=== PATIENT | female | born 1990 | race Caucasian/White ===

== ENCOUNTER 2017-07-18 11:52 | Emergency (ER) | payer BC ==
[2017-07-18] MEDS ORDERED: Lidocaine 2% Viscous Solution 15 ML Cup PO ONE (12:39)
[2017-07-18] MEDS ORDERED: Benzocaine 20% Topical Spray UD MUCMEM ONE (12:39)
--- NOTE | 2017-07-18 12:57 | EDM.PDOC ---
ED HPI GENERAL MEDICAL PROBLEM - General Chief Complaint: ENT Problem Stated Complaint: TOOTH PAIN Time Seen by Provider: 07/18/17 12:36 Source of Information: Reports: Patient History Limitations: Reports: No Limitations - History of Present Illness INITIAL COMMENTS - FREE TEXT/NARRATIVE: History of present illness: []Patient has chronic dental pain and is new to the area and does not have a dentist. She states she feels like she has an infection starting in the back of her left lower tooth and she is a upper front tooth that gives her chronic pain. She takes Excedrin Migraine but states that caffeine irritates her anxiety. She denies any fevers or facial swelling. Review of systems: As per history of present illness and below otherwise all systems reviewed and negative. Past medical history: As per history of present illness and as reviewed below otherwise noncontributory. Surgical history: As per history of present illness and as reviewed below otherwise noncontributory. Social history: No reported history of drug or alcohol abuse. Family history: As per history of present illness and as reviewed below otherwise noncontributory. Physical exam: General: Well developed, well nourished in NAD HEENT: Atraumatic, normocephalic, pupils reactive, negative for conjunctival pallor or scleral icterus, mucous membranes moist, throat clear, neck supple, nontender, trachea midline. Lungs: Clear to auscultation, breath sounds equal bilaterally, chest nontender. Heart: S1S2, regular, negative for clicks, rubs, or JVD. Abdomen: Soft, nondistended, nontender. Negative for masses or hepatosplenomegaly. Negative for costovertebral tenderness. Pelvis: Stable nontender. Genitourinary: Deferred. Rectal: Deferred. Extremities: Atraumatic, negative for cords or calf pain. Neurovascular unremarkable. Neuro: Awake, alert, oriented. Cranial nerves II through XII unremarkable. Cerebellum unremarkable. Motor and sensory unremarkable throughout. Exam nonfocal. Diagnostics: [] Therapeutics: [] Impression: []Dental abscess Plan: []Dental pulse for pain continue Tylenol Motrin follow-up with a dentist DEREK. Definitive disposition and diagnosis as appropriate pending reevaluation and review of above. left teeth Pain Score (Numeric/FACES): 8 - Related Data Allergies Allergy/AdvReac Type Severity Reaction Status Date / Time No Known Allergies Allergy Verified 07/18/17 12:28 Home Meds: Home Meds Escitalopram [Lexapro] 40 mg PO DAILY 07/18/17 [History] Penicillin V Potassium 500 mg PO Q6HR #40 tab 07/18/17 [Rx] buPROPion [Wellbutrin] 300 mg PO DAILY 07/18/17 [History] clonazePAM [Clonazepam] 1 mg PO TID 07/18/17 [History] Past Medical History HEENT History: Reports: None Cardiovascular History: Reports: None Respiratory History: Reports: None Gastrointestinal History: Reports: None Genitourinary History: Reports: None 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) Other OB/BYN History: Musculoskeletal History: Reports: None Neurological History: Reports: None Psychiatric History: Reports: Anxiety, Depression, Panic Attack, PTSD Endocrine/Metabolic History: Reports: Hypoparathyroidism Hematologic History: Reports: None Immunologic History: Reports: None Oncologic (Cancer) History: Reports: None Dermatologic History: Reports: None - Infectious Disease History Infectious Disease History: Reports: Chicken Pox - Past Surgical History Head Surgeries/Procedures: Reports: None HEENT Surgical History: Reports: None Cardiovascular Surgical History: Reports: None Respiratory Surgical History: Reports: None GI Surgical History: Reports: None Female Surgical History: Reports: None Neurological Surgical History: Reports: None Musculoskeletal Surgical History: Reports: None Oncologic Surgical History: Reports: None Dermatological Surgical History: Reports: None Social & Family History - Family History Family Medical History: Noncontributory - Tobacco Use Smoking Status *Q: Former Smoker Used Tobacco, but Quit: Yes Month Tobacco Last Used: 1 - Caffeine Use Caffeine Use: Reports: Soda - Recreational Drug Use Recreational Drug Use: No ED ROS ENT - Review of Systems Review Of Systems: See Below (See history of present illness) ED EXAM, ENT - Physical Exam Exam: See Below (See history of present illness) Course - Vital Signs Last Recorded V/S: Last Vital Signs Temp 97.3 F 07/18/17 12:30 Pulse 98 07/18/17 12:30 Resp 18 07/18/17 12:30 BP 148/92 H 07/18/17 12:30 Pulse Ox 97 07/18/17 12:30 - Orders/Labs/Meds Meds: Medications Discontinued Medications Generic Name Dose Route Start Last Admin Trade Name Freq PRN Reason Stop Dose Admin Benzocaine 2 each 07/18/17 12:39 07/18/17 12:49 Hurricaine One 20% MUCMEM 07/18/17 12:40 2 each ONETIME ONE Administration Lidocaine HCl 15 ml 07/18/17 12:39 07/18/17 12:49 Xylocaine 2% Viscous PO 07/18/17 12:40 15 ml ONETIME ONE Administration Departure - Departure Time of Disposition: 12:55 Disposition: Home, Self-Care 01 Condition: Good Clinical Impression: Chronic dental pain - Discharge Information Prescriptions: Penicillin V Potassium 500 mg PO Q6HR #40 tab Instructions: Dental Abscess, [id number] Referrals: PCP,None [Primary Care Provider] - Forms: ED Department Discharge Additional Instructions: The following information is given to patients seen in the emergency department who are being discharged to home. This information is to outline your options for follow-up care. We provide all patients seen in our emergency department with a follow-up referral. The need for follow-up, as well as the timing and circumstances, are variable depending upon the specifics of your emergency department visit. If you don't have a primary care physician on staff, we will provide you with a referral. We always advise you to contact your personal physician following an emergency department visit to inform them of the circumstance of the visit and for follow-up with them and/or the need for any referrals to a consulting specialist. The emergency department will also refer you to a specialist when appropriate. This referral assures that you have the opportunity for follow-up care with a specialist. All of these measure are taken in an effort to provide you with optimal care, which includes your follow-up. Under all circumstances we always encourage you to contact your private physician who remains a resource for coordinating your care. When calling for follow-up care, please make the office aware that this follow-up is from your recent emergency room visit. If for any reason you are refused follow-up, please contact the [facility] Emergency Department at and asked to speak to the emergency department charge nurse. Follow up with her regular dentist Motrin and Tylenol for pain penicillin as directed. [facility] [address] [place] [phone]
== END 2017-07-18 13:07 | disposition home or self-care (01) ==
LOC: MW.ED 11:52
DX: K04.7 Periapical abscess without sinus (principal); Z79.899 Other long term (current) drug therapy; Z87.891 Personal history of nicotine dependence
CPT/HCPCS: 99282; A9270

== ENCOUNTER 2017-08-16 13:25 | Emergency (ER) | payer BC ==
--- NOTE | 2017-08-16 13:49 | EDM.PDOCBH ---
ED HPI GENERAL MEDICAL PROBLEM - General Chief Complaint: Behavioral/Psych Stated Complaint: panic attack Time Seen by Provider: 08/16/17 13:49 Source of Information: Reports: Patient History Limitations: Reports: No Limitations - History of Present Illness INITIAL COMMENTS - FREE TEXT/NARRATIVE: HISTORY AND PHYSICAL: History of present illness: Patient is a 27-year-old female who presents to the emergency room with complaints of a "panic attack". She states she has a long-standing history of anxiety and was recently diagnosed with a "panic disorder". She does take Klonopin 1 mg 3 times daily, which she reports normally keeps her well- controlled. She is recently moving here from [place], [place] and is set up to see a provider at [facility] on August 25, 2017. Today she states that something triggered her to have a panic attack and was unable to get it under control. She has labored breathing, palpitations and heightened anxiety. Review of systems: As per history of present illness and below otherwise all systems reviewed and negative. Past medical history: As per history of present illness and as reviewed below otherwise noncontributory. Surgical history: As per history of present illness and as reviewed below otherwise noncontributory. Social history: No reported history of drug or alcohol abuse. Family history: As per history of present illness and as reviewed below otherwise noncontributory. Physical exam: Gen.: Well-developed and well-nourished 27-year-old female. Alert and oriented. Nontoxic appearing and in no acute distress. HEENT: Atraumatic, normocephalic, pupils reactive, negative for conjunctival pallor or scleral icterus, mucous membranes moist, throat clear, neck supple, nontender, trachea midline. Lungs: Clear to auscultation, breath sounds equal bilaterally, chest nontender. Heart: S1S2, regular rate and rhythm Abdomen: Soft, nondistended, nontender. Negative for masses or hepatosplenomegaly. Negative for costovertebral tenderness. Pelvis: Stable nontender. Genitourinary: Deferred. Rectal: Deferred. Extremities: Atraumatic, negative for cords or calf pain. Neurovascular unremarkable. Neuro: Awake, alert, oriented. Cranial nerves II through XII unremarkable. Cerebellum unremarkable. Motor and sensory unremarkable throughout. Exam nonfocal. Diagnostics: [] Therapeutics: Ativan IM Impression: #1 Panic attack #2 History of anxiety Plan: 1. Please keep your appointment for August 25, 2017 as he may need her medications adjusted if he continued to have breakthrough anxiety attacks. 2. Continue to take your prescribed medications as recommended. 3. No driving today after your injection of Ativan. Please go home and rest 4. Return to the ED as needed and as discussed. Definitive disposition and diagnosis as appropriate pending reevaluation and review of above. Onset: Today Duration: Hour(s):, Chronic - Related Data Allergies Allergy/AdvReac Type Severity Reaction Status Date / Time No Known Allergies Allergy Verified 08/16/17 13:32 Home Meds: Home Meds Escitalopram [Lexapro] 40 mg PO DAILY 07/18/17 [History] buPROPion [Wellbutrin] 300 mg PO DAILY 07/18/17 [History] clonazePAM [Clonazepam] 1 mg PO TID 07/18/17 [History] Levothyroxine 75 mcg PO ACBREAKFAST 08/16/17 [History] Past Medical History HEENT History: Reports: None Cardiovascular History: Reports: None Respiratory History: Reports: None Gastrointestinal History: Reports: None Genitourinary History: Reports: None 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) Other OB/BYN History: Musculoskeletal History: Reports: None Neurological History: Reports: None Psychiatric History: Reports: Anxiety, Depression, Panic Attack, PTSD Endocrine/Metabolic History: Reports: Hypoparathyroidism Hematologic History: Reports: None Immunologic History: Reports: None Oncologic (Cancer) History: Reports: None Dermatologic History: Reports: None - Infectious Disease History Infectious Disease History: Reports: Chicken Pox - Past Surgical History Head Surgeries/Procedures: Reports: None HEENT Surgical History: Reports: None Cardiovascular Surgical History: Reports: None Respiratory Surgical History: Reports: None GI Surgical History: Reports: None Female Surgical History: Reports: None Neurological Surgical History: Reports: None Musculoskeletal Surgical History: Reports: None Oncologic Surgical History: Reports: None Dermatological Surgical History: Reports: None Social & Family History - Family History Family Medical History: Noncontributory - Tobacco Use Smoking Status *Q: Never Smoker Used Tobacco, but Quit: Yes Month Tobacco Last Used: 1 - Caffeine Use Caffeine Use: Reports: None - Recreational Drug Use Recreational Drug Use: No ED ROS GENERAL - Review of Systems Review Of Systems: ROS reveals no pertinent complaints other than HPI. ED EXAM, BEHAVIORAL HEALTH - Physical Exam Exam: See Below (See dictation) COURSE, BEHAVIORAL HEALTH COMP - Course Vital Signs: Last Vital Signs Temp 97.8 F 08/16/17 13:34 Pulse 91 08/16/17 13:34 Resp 18 08/16/17 13:34 BP 140/100 H 08/16/17 13:34 Pulse Ox 98 08/16/17 13:34 Departure - Departure Time of Disposition: 14:46 Disposition: Home, Self-Care 01 Clinical Impression: Panic attack, History of anxiety - Discharge Information Referrals: PCP,Unknown [Primary Care Provider] - Forms: ED Department Discharge Additional Instructions: My general discharge The following information is given to patients seen in the emergency department who are being discharged to home. This information is to outline your options for follow-up care. We provide all patients seen in our emergency department with a follow-up referral. The need for follow-up, as well as the timing and circumstances, are variable depending upon the specifics of your emergency department visit. If you don't have a primary care physician on staff, we will provide you with a referral. We always advise you to contact your personal physician following an emergency department visit to inform them of the circumstance of the visit and for follow-up with them and/or the need for any referrals to a consulting specialist. The emergency department will also refer you to a specialist when appropriate. This referral assures that you have the opportunity for follow-up care with a specialist. All of these measure are taken in an effort to provide you with optimal care, which includes your follow-up. Under all circumstances we always encourage you to contact your private physician who remains a resource for coordinating your care. When calling for follow-up care, please make the office aware that this follow-up is from your recent emergency room visit. If for any reason you are refused follow-up, please contact the [facility] Emergency Department at and asked to speak to the emergency department charge nurse. [facility] [address] [place] [phone] 1. Please keep your appointment for August 25, 2017 - as you may need her medications adjusted if he continued to have breakthrough anxiety attacks. 2. Continue to take your prescribed medications as recommended. 3. No driving today after your injection of Ativan. Please go home and rest 4. Return to the ED as needed and as discussed.
[2017-08-16] MEDS ORDERED: LORazepam 2 MG/ML MDV IM ONE (14:42)
[2017-08-16] MEDS ORDERED: Acetaminophen 500 MG Tab PO STA (15:09)
== END 2017-08-16 15:25 | disposition home or self-care (01) ==
LOC: MW.ED 13:25
DX: F41.0 Panic disorder [episodic paroxysmal anxiety] (principal); F32.9 Major depressive disorder, single episode, unspecified; Z79.899 Other long term (current) drug therapy
CPT/HCPCS: 96372; 99283; A9270; J2060

== ENCOUNTER 2017-08-27 17:21 | Emergency (ER) | payer BC ==
[2017-08-27] MEDS ORDERED: LORazepam 2 MG/ML SDV IVPUSH ONE ×2 (17:23→18:32)
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
[2017-08-27] MEDS ORDERED: Sodium Chloride 0.9% 500 ML IV SCH (17:30)
[2017-08-27 18:49] LABS: CHLORIDE,CL 108 mmol/L (98-110); SODIUM,NA 140 mmol/L (136-146)
[2017-08-27] MEDS ORDERED: Ketorolac 60 MG/2 ML SDV IM ONE (19:12)
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
== END 2017-08-27 19:31 | disposition home or self-care (01) ==
LOC: MW.ED 17:21
DX: F41.9 Anxiety disorder, unspecified (principal); R51 Headache; F32.9 Major depressive disorder, single episode, unspecified; Z87.891 Personal history of nicotine dependence; Z79.899 Other long term (current) drug therapy; X02.0XXA Exposure to flames in controlled fire in building or structure, initial encounter
CPT/HCPCS: 36415; 71046; 80053; 82375; 85025; 93005; 96361; 96372; 96374; 96376; 99285; J1885; J2060; J7040; 99284

== ENCOUNTER 2017-11-01 17:01 | Emergency (ER) | payer BC ==
[2017-11-01] MEDS ORDERED: LORazepam 2 MG/ML SDV IVPUSH ONE (17:30)
[2017-11-01] MEDS ORDERED: Prochlorperazine 10 MG/2 ML SDV IM ONE (17:31)
[2017-11-01] MEDS ORDERED: Ketorolac 30 MG/ML SDV IVPUSH ONE (17:33)
[2017-11-01] MEDS ORDERED: diphenhydrAMINE 50 MG/ML SDV IVPUSH ONE (17:33)
[2017-11-01] MEDS: Sodium Chloride 0.9% 500 ML IV SCH ×2 (17:39→18:18)
[2017-11-01] MEDS ORDERED: Morphine 4 MG/ML Syringe IVPUSH ONE (18:50)
--- NOTE | 2017-11-01 18:57 | EDM.PDOC ---
ED HPI GENERAL MEDICAL PROBLEM - General Chief Complaint: Headache Stated Complaint: MIGRAINE/BLURRY VISION Time Seen by Provider: 11/01/17 18:51 Source of Information: Reports: Patient History Limitations: Reports: No Limitations - History of Present Illness INITIAL COMMENTS - FREE TEXT/NARRATIVE: HISTORY AND PHYSICAL: []27-year-old female presenting with migraine headache for the last 2 hours History of Present Illness: []Last migraine headache was 6 months ago. This headache has presented in increased intensity There has history of migraine headaches Patient has never been worked up for migraines in the past Review of Systems: As per history of present illness and below otherwise all systems reviewed and negative. Past medical history: As per history of present illness and as reviewed below otherwise noncontributory. Surgical history: As per history of present illness and as reviewed below otherwise noncontributory. Social history: No reported history of drug or alcohol abuse. Family history: As per history of present illness and as reviewed below otherwise noncontributory. Physical exam: Alert female who is hiding underneath her hoody as she is photophobic, she is nauseated. No emesis. Obese female answering questions appropriately in full sentences no shortness of breath is noted. HEENT: Atraumatic, normocehpalic, pupils reactive, negative for conjunctival pallor or scleral icterus, mucous membranes moist, throat clear, neck supple, nontender, trachea midline. Nasal pharyngeal exudate was noted to the posterior pharynx.Slight tenderness noted to the maxillary sinuses. Lungs: Clear to auscultation, breath sounds equal bilaterally, chest non tender. Heart: S1S2, regular, negative for clicks, rubs, or JVD. Abdomen: Soft, nondistended, nontender. Negative for masses or hepatossplenmegaly. Negative for costovertebral tenderness. Pelvis: Stable nontender. Genitourinary: Deferred. Rectal: Deferred Extremities: Atraumatic, negative for cords or calf pain. Neurovascular unremarkable. Neuro: Awake, alert, oriented. Cranial nerves II through XII unremarkable. Cerebellum unremarkable. Motor and sensory unremarkable throughout. Exam nonfocal. Diagnostics: []head CT Therapeutics: []IV normal saline 1 L Benadryl 25 IV Compazine 10 mg IM Toradol 30 IV Morphine 2mg IV Impression: []#1 migraine #2 sinusitis Plan: []Discharged home Follow-up with your primary care provider Chandnim DS 1 twice a day 14 days Sleep assessment make her headache better Return to emergency room should symptoms worsen in intensity Definitive disposition and diagnosis as appropriate pending reevaluation and review of above. Onset: Today, Sudden Duration: Hour(s): Location: Reports: Head Quality: Reports: Stabbing, Throbbing Severity: Moderate Improves with: Reports: None Worsens with: Reports: None Associated Symptoms: Reports: Headaches headache Pain Score (Numeric/FACES): 7 - Related Data Allergies Allergy/AdvReac Type Severity Reaction Status Date / Time No Known Allergies Allergy Verified 08/16/17 13:32 Home Meds: Home Meds Escitalopram [Lexapro] 40 mg PO DAILY 07/18/17 [History] buPROPion [Wellbutrin] 300 mg PO DAILY 07/18/17 [History] clonazePAM [Clonazepam] 1 mg PO TID 07/18/17 [History] Levothyroxine 75 mcg PO ACBREAKFAST 08/16/17 [History] Sulfamethoxazole/Trimethoprim [Bactrim Ds Tablet] 1 each PO BID #28 tablet 11/01 [Rx] Past Medical History HEENT History: Reports: None Cardiovascular History: Reports: None Respiratory History: Reports: None Gastrointestinal History: Reports: None Genitourinary History: Reports: None 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) Other OB/BYN History: Musculoskeletal History: Reports: None Neurological History: Reports: None Psychiatric History: Reports: Anxiety, Depression, Panic Attack, PTSD Endocrine/Metabolic History: Reports: Hypoparathyroidism, Other (See Below) Other Endocrine/Metabolic History: "pre-diabetic" Hematologic History: Reports: None Immunologic History: Reports: None Oncologic (Cancer) History: Reports: None Dermatologic History: Reports: None - Infectious Disease History Infectious Disease History: Reports: None - Past Surgical History Head Surgeries/Procedures: Reports: None HEENT Surgical History: Reports: None Cardiovascular Surgical History: Reports: None Respiratory Surgical History: Reports: None GI Surgical History: Reports: None Female Surgical History: Reports: None Neurological Surgical History: Reports: None Musculoskeletal Surgical History: Reports: None Oncologic Surgical History: Reports: None Dermatological Surgical History: Reports: None Social & Family History - Family History Family Medical History: Noncontributory - Tobacco Use Smoking Status *Q: Current Every Day Smoker Years of Tobacco use: 25 Packs/Tins Daily: 0.5 Used Tobacco, but Quit: Yes Month/Year Tobacco Last Used: 1 Second Hand Smoke Exposure: No - Caffeine Use Caffeine Use: Reports: Coffee - Recreational Drug Use Recreational Drug Use: No Drug Use in Last 12 Months: No Recreational Drug Use Frequency: Not Used In Over 6 Months ED ROS GENERAL - Review of Systems Review Of Systems: ROS reveals no pertinent complaints other than HPI. - Physical Exam Exam: See Below (see dictation) Course - Vital Signs Last Recorded V/S: Last Vital Signs Temp 36.6 C 11/01/17 17:19 Pulse 81 11/01/17 17:19 Resp 18 11/01/17 17:19 BP 118/70 11/01/17 17:19 Pulse Ox 97 11/01/17 17:19 - Orders/Labs/Meds Orders: Active Orders 24 hr Category Date Time Status Head wo Cont [CT] Stat Exams 11/01/17 17:30 Taken Morphine Med 11/01/17 18:50 Once 2 mg IVPUSH ONETIME ONE Labs: Laboratory Tests 11/01/17 Range/Units 17:29 POC Glucose 131 H (60-110) mg/dL Meds: Medications Discontinued Medications Generic Name Dose Route Start Last Admin Trade Name Scottq PRN Reason Stop Dose Admin Diphenhydramine HCl 25 mg 11/01/17 17:33 11/01/17 17:44 Benadryl IVPUSH 11/01/17 17:34 25 mg ONETIME ONE Administration Sodium Chloride 500 mls @ 999 mls/hr 11/01/17 17:32 11/01/17 18:18 Normal Saline IV 999 mls/hr .BOLUS EVETTE Administration Ketorolac Tromethamine 30 mg 11/01/17 17:33 11/01/17 17:44 Toradol IVPUSH 11/01/17 17:34 30 mg ONETIME ONE Administration Lorazepam 1 mg 11/01/17 17:30 11/01/17 17:39 Ativan IVPUSH 11/01/17 17:31 1 mg ONETIME ONE Administration Prochlorperazine Edisylate 10 mg 11/01/17 17:31 11/01/17 17:40 Compazine IM 11/01/17 17:32 10 mg ONETIME ONE Administration Departure - Departure Time of Disposition: 18:58 Disposition: Home, Self-Care 01 Condition: Good Clinical Impression: Migraine - Discharge Information Prescriptions: Sulfamethoxazole/Trimethoprim [Bactrim Ds Tablet] 1 each PO BID #28 tablet Referrals: Court Espino MD [Primary Care Provider] - Additional Instructions: The following information is given to patients seen in the emergency department who are being discharged to home. This information is to outline your options for follow-up care. We provide all patients seen in our emergency department with a follow-up referral. The need for follow-up, as well as the timing and circumstances, are variable depending upon the specifics of your emergency department visit. If you don't have a primary care physician on staff, we will provide you with a referral. We always advise you to contact your personal physician following an emergency department visit to inform them of the circumstance of the visit and for follow-up with them and/or the need for any referrals to a consulting specialist. The emergency department will also refer you to a specialist when appropriate. This referral assures that you have the opportunity for followup care with a specialist. All of these measure are taken in an effort to provide you with optimal care, which includes your followup. Under all circumstances we always encourage you to contact your private physician who remains a resource for coordinating your care. When calling for followup care, please make the office aware that this follow-up is from your recent emergency room visit. If for any reason you are refused follow-up, please contact the [facility] emergency department at and asked to speak to the emergency department charge nurse. You have a migraine headache and sinus infection Prescription for Bactrim DS has been sent to your pharmacy Follow up with your primary care provider The worsening of symptoms return to the emergency room as directed and discussed Consider a referral to neurology - My Orders Last 24 Hours: My Active Orders 11/01/17 17:30 Head wo Cont [CT] Stat 11/01/17 18:50 Morphine 2 mg IVPUSH ONETIME ONE - Assessment/Plan Last 24 Hours: My Active Orders 11/01/17 17:30 Head wo Cont [CT] Stat 11/01/17 18:50 Morphine 2 mg IVPUSH ONETIME ONE
--- NOTE | 2017-11-02 10:28 | CT ---
EXAM DATE: 11/01/17 PATIENT'S AGE: 27 Patient: SHANTA AVERY Facility: [place], [place] Site . Site : 1990 Study: CT Head [id number] 6:13:23 PM Ordering Physician: Doctor De La Rosa Final Report: INDICATION: Migraine TECHNIQUE: CT Head without contrast. COMPARISON: None. FINDINGS: There is no sign of intracranial hemorrhage or mass effect. Focal low attenuating foci within the basal ganglia likely related to prominent Virchow Bryant spaces. The hale-white differentiation is preserved. Scattered opacification of the imaged paranasal sinuses. No acute disease of the mastoid air cells. No fracture evident. No scalp hematoma/laceration. IMPRESSION: 1. No acute intracranial process. 2. Please correlate for the possibility of acute sinusitis Dictated by: Denis Fried MD @ 11/01/2017 18:47:42 (Electronic Signature) Report Signed by Proxy. [facility]
== END 2017-11-01 19:17 | disposition home or self-care (01) ==
LOC: MW.ED 17:01
DX: G43.909 Migraine, unspecified, not intractable, without status migrainosus (principal); J32.9 Chronic sinusitis, unspecified; E20.9 Hypoparathyroidism, unspecified; Z79.899 Other long term (current) drug therapy
CPT/HCPCS: 70450; 82962; 96361; 96372; 96374; 96375; 99284; J0780; J1200; J1885; J2060; J2270; J7040; 99283

== ENCOUNTER 2017-11-05 16:07 | Emergency (ER) | payer BC ==
--- NOTE | 2017-11-05 16:39 | EDM.PDOC ---
ED HPI GENERAL MEDICAL PROBLEM - General Chief Complaint: General Stated Complaint: WEAK Time Seen by Provider: 11/05/17 16:25 - History of Present Illness INITIAL COMMENTS - FREE TEXT/NARRATIVE: HISTORY AND PHYSICAL: History of present illness: The patient is a 27-year-old female who was seen here in our emergency department several days ago for migraine-like headaches for which she has had in the past but has not followed with a migraine specialist or neurologist and was evaluated with CT scan of the head and was given IV fluids Benadryl Compazine Toradol and morphine. Her headache was improved and CT scan showed scattered paranasal sinus disease and she was placed on antibiotics which she says she is taking. The patient says she is still having headaches and has been using [id number] ibuprofen or aspirin for them which is not nauseated or vomiting. She is having thick nasal drainage when she is able to get it mobilized. She's had no fevers no chills but has generalized weakness and shakiness. The patient also expressed to triage that she is worried she might be and she was not worried when she was seen here 4 days ago and denied but now she is concerned because of the way she is feeling. She initially told me that she needed a blood test and was requesting such. She is not had any cough chest pain or shortness of breath and no abdominal pain. She's had no recent trauma. Patient is still complaining of a frontal headache and pain behind her eyes with some blurriness of vision. She is not taking anything prescription for her pain currently ; the patient says she just feels generalized weakness and malaise and she is concerned about that. Patient also tells me that she has an implant and she only wanted a test because her significant other was worried about failure Review of systems: As per history of present illness and below otherwise all systems reviewed and negative. Past medical history: As per history of present illness and as reviewed below otherwise noncontributory. Surgical history: As per history of present illness and as reviewed below otherwise noncontributory. Social history: No reported history of drug or alcohol abuse. Family history: As per history of present illness and as reviewed below otherwise noncontributory. Physical exam: General: Well-developed overweight female who is nontoxic and vital signs are noted by me. HEENT: Atraumatic, normocephalic, pupils reactive, there is some photophobia negative for conjunctival pallor or scleral icterus, mucous membranes moist, throat clear, neck supple, nontender, trachea midline. TMs are dulled bilaterally and there is boggy turbinates and the nasal passages right greater than left. There is sinus tenderness with palpation of the frontal maxillary sinuses. Lungs: Clear to auscultation, breath sounds equal bilaterally, chest nontender. Heart: S1S2, regular in rhythm no overt murmurs Abdomen: Soft, nondistended, nontender. NABS Pelvis: Deferred Genitourinary: Deferred. Rectal: Deferred. Extremities: Atraumatic, negative for cords or calf pain. Neurovascular unremarkable. Neuro: Awake, alert, oriented. Cranial nerves II through XII unremarkable. Cerebellum unremarkable. Motor and sensory unremarkable throughout. Exam nonfocal. Diagnostics: Urine , CBC CMP UDS Therapeutics: IV fluids Toradol and Reglan Benadryl Solu-Medrol Patient feels improved and would like to be discharged home. I will send her home with fear is that with codeine and referral to neurology Impression: Migraine complicated by sinusitis, reevaluation Definitive disposition and diagnosis as appropriate pending reevaluation and review of above. Headache Pain Score (Numeric/FACES): 8 - Related Data Allergies Allergy/AdvReac Type Severity Reaction Status Date / Time No Known Allergies Allergy Verified 11/05/17 16:26 Home Meds: Home Meds Escitalopram [Lexapro] 40 mg PO DAILY 07/18/17 [History] buPROPion [Wellbutrin] 300 mg PO DAILY 07/18/17 [History] clonazePAM [Clonazepam] 1 mg PO TID 07/18/17 [History] Levothyroxine 75 mcg PO ACBREAKFAST 08/16/17 [History] Sulfamethoxazole/Trimethoprim [Bactrim Ds Tablet] 1 each PO BID #28 tablet 11/01 [Rx] Past Medical History HEENT History: Reports: None Cardiovascular History: Reports: None Respiratory History: Reports: None Gastrointestinal History: Reports: None Genitourinary History: Reports: None REDRAWER History: Reports: Other (See Below) Other OB/BYN History: Musculoskeletal History: Reports: None Neurological History: Reports: None Psychiatric History: Reports: Anxiety, Depression, Panic Attack, PTSD Endocrine/Metabolic History: Reports: Hypoparathyroidism, Other (See Below) Other Endocrine/Metabolic History: "pre-diabetic" Hematologic History: Reports: None Immunologic History: Reports: None Oncologic (Cancer) History: Reports: None Dermatologic History: Reports: None - Infectious Disease History Infectious Disease History: Reports: Chicken Pox - Past Surgical History Head Surgeries/Procedures: Reports: None HEENT Surgical History: Reports: None Cardiovascular Surgical History: Reports: None Respiratory Surgical History: Reports: None GI Surgical History: Reports: None Female Surgical History: Reports: None Neurological Surgical History: Reports: None Musculoskeletal Surgical History: Reports: None Oncologic Surgical History: Reports: None Dermatological Surgical History: Reports: None Social & Family History - Family History Family Medical History: Noncontributory - Tobacco Use Smoking Status *Q: Light Tobacco Smoker Years of Tobacco use: 17 Packs/Tins Daily: 0.1 Used Tobacco, but Quit: Yes Month/Year Tobacco Last Used: 1 Second Hand Smoke Exposure: No - Caffeine Use Caffeine Use: Reports: Coffee - Recreational Drug Use Recreational Drug Use: No Drug Use in Last 12 Months: No Recreational Drug Use Frequency: Not Used In Over 6 Months ED ROS GENERAL - Review of Systems Review Of Systems: ROS reveals no pertinent complaints other than HPI. ED EXAM, GENERAL - Physical Exam Exam: See Below (see dictation) Course - Vital Signs Last Recorded V/S: Last Vital Signs Temp 35.8 C 11/05/17 16:23 Pulse 100 11/05/17 16:23 Resp 18 11/05/17 16:23 BP 139/87 11/05/17 16:23 Pulse Ox 95 11/05/17 16:23 - Orders/Labs/Meds Orders: Active Orders 24 hr Category Date Time Status HCG QUALITATIVE,URINE [URCHEM] Stat Lab 11/05/17 16:38 Ordered Sodium Chloride 0.9% [Saline Flush] Med 11/05/17 17:12 Active 10 ml FLUSH ASDIRECTED PRN Sodium Chloride 0.9% [Saline Flush] Med 11/05/17 17:12 Active 2.5 ml FLUSH ASDIRECTED PRN Saline Lock Insert [OM.PC] Stat Oth 11/05/17 17:12 Ordered Medication Orders Sodium Chloride (Saline Flush) 10 ml FLUSH ASDIRECTED PRN PRN Reason: Keep Vein Open Sodium Chloride (Saline Flush) 2.5 ml FLUSH ASDIRECTED PRN PRN Reason: Keep Vein Open Labs: Laboratory Tests 11/05/17 11/05/17 11/05/17 Range/Units 16:38 16:38 17:40 WBC 12.65 H (4.0-11.0) K/uL RBC 5.10 (4.30-5.90) M/uL Hgb 15.3 (12.0-16.0) g/dL Hct 44.8 (36.0-46.0) % MCV 87.8 (80.0-98.0) fL MCH 30.0 (27.0-32.0) pg MCHC 34.2 (31.0-37.0) g/dL RDW Std Deviation 44.0 (28.0-62.0) fl RDW Coeff of Peyton 14 (11.0-15.0) % Plt Count 306 (150-400) K/uL MPV 9.90 (7.40-12.00) fL Add Manual Diff YES Neutrophils % (Manual) 68 (48.0-80.0) % Band Neutrophils % 2 % Lymphocytes % (Manual) 26 (16.0-40.0) % Monocytes % (Manual) 2 (0.0-15.0) % Basophils % (Manual) 2 H (0.0-1.5) % Nucleated RBC % 0.0 /100WBC Absolute Seg Neuts 8.6 H (1.4-5.7) Band Neutrophils # 0.3 Lymphocytes # (Manual) 3.3 H (0.6-2.4) Monocytes # (Manual) 0.3 (0.0-0.8) Basophils # (Manual) 0.3 H (0.0-0.1) Nucleated RBCs # 0 K/uL Sodium (136-145) mmol/L Potassium (3.5-5.1) mmol/L Chloride (98-107) mmol/L Carbon Dioxide (21.0-32.0) mmol/L BUN (7.0-18.0) mg/dL Creatinine (0.6-1.0) mg/dL Est Cr Clr Drug Dosing mL/min Estimated GFR (MDRD) ml/min Glucose (74-106) mg/dL Calcium (8.5-10.1) mg/dL Total Bilirubin (0.2-1.0) mg/dL AST (15-37) IU/L ALT (14-63) IU/L Alkaline Phosphatase (46-116) U/L Total Protein (6.4-8.2) g/dL Albumin (3.4-5.0) g/dL Globulin (2.0-3.5) g/dL Albumin/Globulin Ratio (1.3-2.8) Urine HCG, Qual NEGATIVE (NEGATIVE) Urine Opiates Screen NEGATIVE (NEGATIVE) Ur Oxycodone Screen NEGATIVE (NEGATIVE) Urine Methadone Screen NEGATIVE (NEGATIVE) Ur Barbiturates Screen NEGATIVE (NEGATIVE) Ur Phencyclidine Scrn NEGATIVE (NEGATIVE) Ur Amphetamine Screen NEGATIVE (NEGATIVE) U Methamphetamines Scrn NEGATIVE (NEGATIVE) U Benzodiazepines Scrn POSITIVE (NEGATIVE) U Cocaine Metab Screen NEGATIVE (NEGATIVE) U Marijuana (THC) Screen POSITIVE (NEGATIVE) 11/05/17 Range/Units 17:40 WBC (4.0-11.0) K/uL RBC (4.30-5.90) M/uL Hgb (12.0-16.0) g/dL Hct (36.0-46.0) % MCV (80.0-98.0) fL MCH (27.0-32.0) pg MCHC (31.0-37.0) g/dL RDW Std Deviation (28.0-62.0) fl RDW Coeff of Peyton (11.0-15.0) % Plt Count (150-400) K/uL MPV (7.40-12.00) fL Add Manual Diff Neutrophils % (Manual) (48.0-80.0) % Band Neutrophils % % Lymphocytes % (Manual) (16.0-40.0) % Monocytes % (Manual) (0.0-15.0) % Basophils % (Manual) (0.0-1.5) % Nucleated RBC % /100WBC Absolute Seg Neuts (1.4-5.7) Band Neutrophils # Lymphocytes # (Manual) (0.6-2.4) Monocytes # (Manual) (0.0-0.8) Basophils # (Manual) (0.0-0.1) Nucleated RBCs # K/uL Sodium 138 (136-145) mmol/L Potassium 4.2 (3.5-5.1) mmol/L Chloride 105 (98-107) mmol/L Carbon Dioxide 22.9 (21.0-32.0) mmol/L BUN 12 (7.0-18.0) mg/dL Creatinine 0.9 (0.6-1.0) mg/dL Est Cr Clr Drug Dosing 69.60 mL/min Estimated GFR (MDRD) > 60.0 ml/min Glucose 154 H (74-106) mg/dL Calcium 9.7 (8.5-10.1) mg/dL Total Bilirubin 0.3 (0.2-1.0) mg/dL AST 33 (15-37) IU/L ALT 54 (14-63) IU/L Alkaline Phosphatase 77 (46-116) U/L Total Protein 7.3 (6.4-8.2) g/dL Albumin 3.7 (3.4-5.0) g/dL Globulin 3.6 H (2.0-3.5) g/dL Albumin/Globulin Ratio 1.0 L (1.3-2.8) Urine HCG, Qual (NEGATIVE) Urine Opiates Screen (NEGATIVE) Ur Oxycodone Screen (NEGATIVE) Urine Methadone Screen (NEGATIVE) Ur Barbiturates Screen (NEGATIVE) Ur Phencyclidine Scrn (NEGATIVE) Ur Amphetamine Screen (NEGATIVE) U Methamphetamines Scrn (NEGATIVE) U Benzodiazepines Scrn (NEGATIVE) U Cocaine Metab Screen (NEGATIVE) U Marijuana (THC) Screen (NEGATIVE) Meds: Medications Generic Name Dose Route Start Last Admin Trade Name Freq PRN Reason Stop Dose Admin Sodium Chloride 10 ml 11/05/17 17:12 Saline Flush FLUSH ASDIRECTED PRN Keep Vein Open Sodium Chloride 2.5 ml 11/05/17 17:12 Saline Flush FLUSH ASDIRECTED PRN Keep Vein Open Discontinued Medications Generic Name Dose Route Start Last Admin Trade Name Freq PRN Reason Stop Dose Admin Diphenhydramine HCl 25 mg 11/05/17 17:12 11/05/17 18:03 Benadryl IVPUSH 11/05/17 17:13 25 mg ONETIME ONE Administration Sodium Chloride 1,000 mls @ 999 mls/hr 11/05/17 17:12 11/05/17 18:04 Normal Saline IV 11/05/17 18:12 999 mls/hr STAT ONE Administration Ketorolac Tromethamine 30 mg 11/05/17 17:12 11/05/17 18:03 Toradol IVPUSH 11/05/17 17:13 30 mg ONETIME ONE Administration Methylprednisolone Sodium Succinate 125 mg 11/05/17 17:12 11/05/17 18:04 Solu-Medrol IVPUSH 11/05/17 17:13 125 mg ONETIME ONE Administration Metoclopramide HCl 10 mg 11/05/17 17:12 11/05/17 18:03 Reglan IV 11/05/17 17:13 10 mg ONETIME ONE Administration Departure - Departure Time of Disposition: 18:52 Disposition: Home, Self-Care 01 Condition: Good Clinical Impression: Migraine Sinusitis Qualifiers: Sinusitis location: pansinusitis Chronicity: acute Recurrence: not specified as recurrent Qualified Code(s): J01.40 - Acute pansinusitis, unspecified - Discharge Information Referrals: PCP,None [Primary Care Provider] - Forms: ED Department Discharge Additional Instructions: The following information is given to patients seen in the emergency department who are being discharged to home. This information is to outline your options for follow-up care. We provide all patients seen in our emergency department with a follow-up referral. The need for follow-up, as well as the timing and circumstances, are variable depending upon the specifics of your emergency department visit. If you don't have a primary care physician on staff, we will provide you with a referral. We always advise you to contact your personal physician following an emergency department visit to inform them of the circumstance of the visit and for follow-up with them and/or the need for any referrals to a consulting specialist. The emergency department will also refer you to a specialist when appropriate. This referral assures that you have the opportunity for followup care with a specialist. All of these measure are taken in an effort to provide you with optimal care, which includes your followup. Under all circumstances we always encourage you to contact your private physician who remains a resource for coordinating your care. When calling for followup care, please make the office aware that this follow-up is from your recent emergency room visit. If for any reason you are refused follow-up, please contact the [facility] emergency department at and ask to speak to the emergency department charge nurse. [facility] Primary care- Internal Medicine and Family [facility] [address] [place] [id number] [facility] Specialty care-Neurology Professional Building [address] [place] [address], [address] [place] [address] Please take all medications that you have at home, the antibiotics. Sinusitis, until they're finished and also add [id number] Claritin or Melvi or Benadryl to help dry up some of the fluid and provide some relief. Please sleep on 2-3 pillows at night to promote drainage of the sinus fluid. Continue to use ibuprofen as we discussed but do not take more than 800 mg every 8 hours. Please use all medications as you have been prescribed. Push hydration rest and please contact our clinic to follow up with primary care as well as our neurologist Dr. Alex. She will likely not be able to see you emergently next week but you do need to schedule an appointment for migraine evaluation and further care. Return to ER as needed and as discussed - My Orders Last 24 Hours: My Active Orders 11/05/17 16:38 HCG QUALITATIVE,URINE [URCHEM] Stat 11/05/17 17:12 Sodium Chloride 0.9% [Saline Flush] 10 ml FLUSH ASDIRECTED PRN Sodium Chloride 0.9% [Saline Flush] 2.5 ml FLUSH ASDIRECTED PRN Saline Lock Insert [OM.PC] Stat - Assessment/Plan Last 24 Hours: My Active Orders 11/05/17 16:38 HCG QUALITATIVE,URINE [URCHEM] Stat 11/05/17 17:12 Sodium Chloride 0.9% [Saline Flush] 10 ml FLUSH ASDIRECTED PRN Sodium Chloride 0.9% [Saline Flush] 2.5 ml FLUSH ASDIRECTED PRN Saline Lock Insert [OM.PC] Stat
[2017-11-05] MEDS ORDERED: Ketorolac 30 MG/ML SDV IVPUSH ONE (17:12)
[2017-11-05] MEDS ORDERED: methylPREDNISolone Sodium Succinate 125 MG/2 ML SDV IVPUSH ONE (17:12)
[2017-11-05] MEDS ORDERED: Metoclopramide 10 MG/2 ML SDV IV ONE (17:12)
[2017-11-05] MEDS ORDERED: Sodium Chloride 0.9% 10 ML Syringe FLUSH PRN (17:12)
[2017-11-05] MEDS ORDERED: Sodium Chloride 0.9% 2.5 ML Syringe FLUSH PRN (17:12)
[2017-11-05] MEDS ORDERED: Sodium Chloride 0.9% 1,000 ML IV ONE (17:12)
[2017-11-05] MEDS ORDERED: diphenhydrAMINE 50 MG/ML SDV IVPUSH ONE (17:12)
[2017-11-05 18:14] LABS: CHLORIDE,CL 105 mmol/L (98-107); SODIUM,NA 138 mmol/L (136-145)
== END 2017-11-05 19:00 | disposition home or self-care (01) ==
LOC: MW.ED 16:07
DX: G43.909 Migraine, unspecified, not intractable, without status migrainosus (principal); J01.40 Acute pansinusitis, unspecified; E20.9 Hypoparathyroidism, unspecified; F17.210 Nicotine dependence, cigarettes, uncomplicated; Z79.899 Other long term (current) drug therapy
CPT/HCPCS: 36415; 80053; 80305; 81025; 85025; 96361; 96374; 96375; 99284; J1200; J1885; J2765; J7040; J2930

== ENCOUNTER 2018-04-11 19:26 | Emergency (ER) | payer BC, MEDICAID ==
--- NOTE | 2018-04-11 19:50 | EDM.PDOCBH ---
ED HPI GENERAL MEDICAL PROBLEM - General Chief Complaint: Behavioral/Psych Stated Complaint: MENTAL EVAL Time Seen by Provider: 04/11/18 19:49 Source of Information: Reports: Patient History Limitations: Reports: No Limitations - History of Present Illness INITIAL COMMENTS - FREE TEXT/NARRATIVE: HISTORY AND PHYSICAL: History of present illness: Patient is a 27-year-old female who presents to the emergency room today with complaints of suicidal ideation. She states she has a long-standing history of anxiety and depression and has been taking medications for years. She states over the past one year she has had 3 prior admissions for mental health evaluations. She states "I feel like I'm being drugged into feeling okay". She states yesterday she started having thoughts of killing herself with a knife when her significant other was not around. Today she asked for her significant other to bring her to the emergency room as she is requesting to be transferred to a mental health facility for evaluation and medication adjustment. She denies taking any excess of her prescribed medications, [id number] medication or alcohol. She does state she uses marijuana to self medicate for her anxiety. Denies fever, chills, chest pain, shortness of breath or cough. Denies any abdominal pain, nausea, vomiting, diarrhea, constipation or dysuria. Denies any chance of , has the next plan on implant. Review of systems: As per history of present illness and below otherwise all systems reviewed and negative. Past medical history: As per history of present illness and as reviewed below otherwise noncontributory. Surgical history: As per history of present illness and as reviewed below otherwise noncontributory. Social history: No reported history of drug or alcohol abuse. Family history: As per history of present illness and as reviewed below otherwise noncontributory. Physical exam: General: Well-developed and well-nourished 27-year-old female. Alert and oriented. Tearful, nontoxic appearing and in no acute distress. HEENT: Atraumatic, normocephalic, pupils equal and reactive bilaterally, negative for conjunctival pallor or scleral icterus, mucous membranes moist, throat clear, neck supple, nontender, trachea midline. No drooling or trismus noted. No meningeal signs Lungs: Clear to auscultation, breath sounds equal bilaterally, chest nontender. Heart: S1S2, regular rate and rhythm without overt murmur Abdomen: Soft, nondistended, nontender. Negative for masses or hepatosplenomegaly. Negative for costovertebral tenderness. Pelvis: Stable nontender. Genitourinary: Deferred. Rectal: Deferred. Skin: Intact, warm, dry. No lesions or rashes noted. Extremities: Atraumatic, negative for cords or calf pain. Neurovascular unremarkable. Neuro: Awake, alert, oriented. Cranial nerves II through XII unremarkable. Cerebellum unremarkable. Motor and sensory unremarkable throughout. Exam nonfocal. Notes: 2054: Dr Roldan, Psychiatrist from [facility] was consulted on this case. He is agreeable to accepting this patient for further evaluation and management. Patient is aware of her labs (high TSH) and wants to be transfered, stating she doesn't feel safe at home alone with herself. VSS. Will continue to monitor Diagnostics: CBC, CMP, UA, urine , TSH, acetaminophen, salicylate and urine drug screen Therapeutics: Ativan PO Impression: Suicidal Ideation Anxiety Hypothyroidism Plan: Transfer to [facility] via ground EMS. Definitive disposition and diagnosis as appropriate pending reevaluation and review of above. chest Pain Score (Numeric/FACES): 6 - Related Data Allergies Allergy/AdvReac Type Severity Reaction Status Date / Time No Known Allergies Allergy Verified 04/11/18 19:55 Home Meds: Home Meds Escitalopram [Lexapro] 40 mg PO DAILY 07/18/17 [History] buPROPion [Wellbutrin] 300 mg PO DAILY 07/18/17 [History] clonazePAM [Clonazepam] 1 mg PO TID 07/18/17 [History] Levothyroxine 75 mcg PO ACBREAKFAST 08/16/17 [History] Loratadine [Claritin] 10 mg PO DAILY 04/11/18 [History] Ranitidine HCl [Zantac 75] 1 tab PO DAILY 04/11/18 [History] metFORMIN [Glucophage XR] 500 mg PO BID 04/11/18 [History] Past Medical History HEENT History: Reports: None Cardiovascular History: Reports: None Respiratory History: Reports: None Gastrointestinal History: Reports: None Genitourinary History: Reports: None 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) Other MANUFACTURING MACHINE OPERATOR History: Musculoskeletal History: Reports: None Neurological History: Reports: None Psychiatric History: Reports: Anxiety, Depression, Panic Attack, PTSD Endocrine/Metabolic History: Reports: Hypoparathyroidism, Other (See Below) Other Endocrine/Metabolic History: "pre-diabetic" Hematologic History: Reports: None Immunologic History: Reports: None Oncologic (Cancer) History: Reports: None Dermatologic History: Reports: None - Infectious Disease History Infectious Disease History: Reports: Chicken Pox - Past Surgical History Head Surgeries/Procedures: Reports: None HEENT Surgical History: Reports: None Cardiovascular Surgical History: Reports: None Respiratory Surgical History: Reports: None GI Surgical History: Reports: None Female Surgical History: Reports: None Neurological Surgical History: Reports: None Musculoskeletal Surgical History: Reports: None Oncologic Surgical History: Reports: None Dermatological Surgical History: Reports: None Social & Family History - Family History Family Medical History: Noncontributory - Caffeine Use Caffeine Use: Reports: Coffee ED ROS GENERAL - Review of Systems Review Of Systems: ROS reveals no pertinent complaints other than HPI. ED EXAM, BEHAVIORAL HEALTH - Physical Exam Exam: See Below (See dictation) COURSE, BEHAVIORAL HEALTH COMP - Course Vital Signs: Last Vital Signs Temp 96.0 F 04/11/18 19:50 Pulse 101 H 04/11/18 19:50 Resp 16 04/11/18 19:50 BP 133/93 H 04/11/18 19:50 Pulse Ox 97 04/11/18 19:50 Orders, Labs, Meds: Laboratory Tests 04/11/18 04/11/18 04/11/18 Range/Units 19:45 19:45 19:45 WBC (4.0-11.0) K/uL RBC (4.30-5.90) M/uL Hgb (12.0-16.0) g/dL Hct (36.0-46.0) % MCV (80.0-98.0) fL MCH (27.0-32.0) pg MCHC (31.0-37.0) g/dL RDW Std Deviation (28.0-62.0) fl RDW Coeff of Peyton (11.0-15.0) % Plt Count (150-400) K/uL MPV (7.40-12.00) fL Neut % (Auto) (48.0-80.0) % Lymph % (Auto) (16.0-40.0) % Ada % (Auto) (0.0-15.0) % Eos % (Auto) (0.0-7.0) % Baso % (Auto) (0.0-1.5) % Neut # (Auto) (1.4-5.7) K/uL Lymph # (Auto) (0.6-2.4) K/uL Ada # (Auto) (0.0-0.8) K/uL Eos # (Auto) (0.0-0.7) K/uL Baso # (Auto) (0.0-0.1) K/uL Nucleated RBC % /100WBC Nucleated RBCs # K/uL Sodium (136-145) mmol/L Potassium (3.5-5.1) mmol/L Chloride (98-107) mmol/L Carbon Dioxide (21.0-32.0) mmol/L BUN (7.0-18.0) mg/dL Creatinine (0.6-1.0) mg/dL Est Cr Clr Drug Dosing mL/min Estimated GFR (MDRD) ml/min Glucose (74-106) mg/dL Calcium (8.5-10.1) mg/dL Total Bilirubin (0.2-1.0) mg/dL AST (15-37) IU/L ALT (14-63) IU/L Alkaline Phosphatase (46-116) U/L Total Protein (6.4-8.2) g/dL Albumin (3.4-5.0) g/dL Globulin (2.0-3.5) g/dL Albumin/Globulin Ratio (1.3-2.8) TSH 3rd Generation (0.36-3.74) uIU/mL Urine Color YELLOW Urine Appearance CLOUDY Urine pH 7.0 (5.0-8.0) Ur Specific [place] 1.025 (1.001-1.035) Urine Protein TRACE (NEGATIVE) mg/dL Urine Glucose (UA) NEGATIVE (NEGATIVE) mg/dL Urine Ketones NEGATIVE (NEGATIVE) mg/dL Urine Occult Blood NEGATIVE (NEGATIVE) Urine Nitrite NEGATIVE (NEGATIVE) Urine Bilirubin NEGATIVE (NEGATIVE) Urine Urobilinogen 2.0 H (<2.0) EU/dL Ur Leukocyte Esterase NEGATIVE (NEGATIVE) Urine RBC 0-1 (0-2/HPF) Urine WBC 0-2 (0-5/HPF) Ur Epithelial Cells MANY (NONE-FEW) Amorphous Sediment MODERATE (NEGATIVE) Urine Bacteria 2+ H (NEGATIVE) Urine Mucus LIGHT (NONE-MOD) Urine HCG, Qual NEGATIVE (NEGATIVE) Salicylates (0-20) mg/dL Urine Opiates Screen NEGATIVE (NEGATIVE) Ur Oxycodone Screen NEGATIVE (NEGATIVE) Urine Methadone Screen NEGATIVE (NEGATIVE) Acetaminophen ug/mL Ur Barbiturates Screen NEGATIVE (NEGATIVE) Ur Phencyclidine Scrn NEGATIVE (NEGATIVE) Ur Amphetamine Screen NEGATIVE (NEGATIVE) U Methamphetamines Scrn NEGATIVE (NEGATIVE) U Benzodiazepines Scrn NEGATIVE (NEGATIVE) U Cocaine Metab Screen NEGATIVE (NEGATIVE) U Marijuana (THC) Screen NEGATIVE (NEGATIVE) 04/11/18 04/11/18 Range/Units 20:03 20:03 WBC 14.46 H (4.0-11.0) K/uL RBC 5.37 (4.30-5.90) M/uL Hgb 15.7 (12.0-16.0) g/dL Hct 46.3 H (36.0-46.0) % MCV 86.2 (80.0-98.0) fL MCH 29.2 (27.0-32.0) pg MCHC 33.9 (31.0-37.0) g/dL RDW Std Deviation 42.7 (28.0-62.0) fl RDW Coeff of Peyton 14 (11.0-15.0) % Plt Count 374 (150-400) K/uL MPV 10.40 (7.40-12.00) fL Neut % (Auto) 66.4 (48.0-80.0) % Lymph % (Auto) 24.8 (16.0-40.0) % Ada % (Auto) 6.2 (0.0-15.0) % Eos % (Auto) 2.5 (0.0-7.0) % Baso % (Auto) 0.1 (0.0-1.5) % Neut # (Auto) 9.6 H (1.4-5.7) K/uL Lymph # (Auto) 3.6 H (0.6-2.4) K/uL Ada # (Auto) 0.9 H (0.0-0.8) K/uL Eos # (Auto) 0.4 (0.0-0.7) K/uL Baso # (Auto) 0.0 (0.0-0.1) K/uL Nucleated RBC % 0.0 /100WBC Nucleated RBCs # 0 K/uL Sodium 138 (136-145) mmol/L Potassium 4.0 (3.5-5.1) mmol/L Chloride 104 (98-107) mmol/L Carbon Dioxide 22.2 (21.0-32.0) mmol/L BUN 11 (7.0-18.0) mg/dL Creatinine 0.9 (0.6-1.0) mg/dL Est Cr Clr Drug Dosing 69.60 mL/min Estimated GFR (MDRD) > 60.0 ml/min Glucose 130 H (74-106) mg/dL Calcium 9.8 (8.5-10.1) mg/dL Total Bilirubin 0.8 (0.2-1.0) mg/dL AST 28 (15-37) IU/L ALT 58 (14-63) IU/L Alkaline Phosphatase 89 (46-116) U/L Total Protein 8.1 (6.4-8.2) g/dL Albumin 4.2 (3.4-5.0) g/dL Globulin 3.9 H (2.0-3.5) g/dL Albumin/Globulin Ratio 1.1 L (1.3-2.8) TSH 3rd Generation 10.23 H (0.36-3.74) uIU/mL Urine Color Urine Appearance Urine pH (5.0-8.0) Ur Specific [place] (1.001-1.035) Urine Protein (NEGATIVE) mg/dL Urine Glucose (UA) (NEGATIVE) mg/dL Urine Ketones (NEGATIVE) mg/dL Urine Occult Blood (NEGATIVE) Urine Nitrite (NEGATIVE) Urine Bilirubin (NEGATIVE) Urine Urobilinogen (<2.0) EU/dL Ur Leukocyte Esterase (NEGATIVE) Urine RBC (0-2/HPF) Urine WBC (0-5/HPF) Ur Epithelial Cells (NONE-FEW) Amorphous Sediment (NEGATIVE) Urine Bacteria (NEGATIVE) Urine Mucus (NONE-MOD) Urine HCG, Qual (NEGATIVE) Salicylates 0.6 (0-20) mg/dL Urine Opiates Screen (NEGATIVE) Ur Oxycodone Screen (NEGATIVE) Urine Methadone Screen (NEGATIVE) Acetaminophen 0.0 ug/mL Ur Barbiturates Screen (NEGATIVE) Ur Phencyclidine Scrn (NEGATIVE) Ur Amphetamine Screen (NEGATIVE) U Methamphetamines Scrn (NEGATIVE) U Benzodiazepines Scrn (NEGATIVE) U Cocaine Metab Screen (NEGATIVE) U Marijuana (THC) Screen (NEGATIVE) Medications Discontinued Medications Generic Name Dose Route Start Last Admin Trade Name Freq PRN Reason Stop Dose Admin Diphenhydramine HCl 25 mg 04/11/18 20:46 Benadryl PO 04/11/18 20:47 ONETIME ONE Lorazepam 1 mg 04/11/18 20:00 04/11/18 20:15 Ativan PO 04/11/18 20:01 1 mg ONETIME ONE Administration Departure - Departure Time of Disposition: 21:13 Disposition: DC/Tfer to Psych Hosp/Unit 65 Clinical Impression: Anxiety, Suicidal ideation Hypothyroid Qualifiers: Hypothyroidism type: unspecified Qualified Code(s): E03.9 - Hypothyroidism, unspecified - Discharge Information Referrals: PCP,None [Primary Care Provider] - Forms: ED Department Discharge
[2018-04-11] MEDS ORDERED: LORazepam 1 MG Tab PO ONE (20:00)
[2018-04-11] MEDS ORDERED: diphenhydrAMINE 25 MG Cap PO ONE (20:46)
[2018-04-11 20:51] LABS: CHLORIDE,CL 104 mmol/L (98-107); SODIUM,NA 138 mmol/L (136-145)
== END 2018-04-11 23:15 ==
LOC: MW.ED 19:26
DX: R45.851 Suicidal ideations (principal); F41.9 Anxiety disorder, unspecified; E03.9 Hypothyroidism, unspecified; Z79.899 Other long term (current) drug therapy; Z79.84 Long term (current) use of oral hypoglycemic drugs
CPT/HCPCS: 36415; 80053; 80305; 81001; 81025; 84443; 85025; 99285; A9270; G0480; 99284